=== PATIENT | male | born 1995 | race African-American/Black ===

== ENCOUNTER 2023-07-06 15:54 | Emergency (ER) | payer BC, MEDICAID ==
[~2023-07-06] VITALS: Ht 182.9 cm; Wt 117.4 kg
[2023-07-06 16:10] VITALS: BP 132/81; PULSE 113; RESP 15; O2SAT 94
[2023-07-06 16:50] LABS: Basophils # (auto) 0.1 10 ^3/uL (0-0.2); Basophils % (auto) 0.7 % (0.0-2.0); Eosinophils # (auto) 0 10 ^3/uL (0-0.8); Hematocrit 44.4 % (41.0-53.0); Hemoglobin 14.9 g/dL (13.5-17.5); Lymphocytes # (auto) 2.6 10 ^3/uL (0.4-5.4); Mean Corpuscular Hemoglobin 30.9 pg (28.0-32.0); Mean Corpuscular Hgb Conc. 33.5 g/dL (32.0-36.0); Mean Corpuscular Volume 92.2 fL (80.0-100.0); Monocytes # (auto) 0.6 10 ^3/uL (0-1.3); Monocytes % (auto) 5.3 % (0.0-12.0); Red Blood Cells 4.82 10^6/uL (4.5-5.90); Red Cell Distribution Width 12.5 % (11.8-14.3); White Blood Cell 11.3 10^3/uL (4.4-10.8)
[2023-07-06 17:07] LABS: Urine WBC None Seen /hpf (0 - 3)
[2023-07-06 17:08] LABS: Alanine Aminotransferase 27 U/L (7-40); Albumin 4.6 g/dL (3.2-4.8); Alkaline Phosphatase 74 U/L (46-116); Anion Gap 9 (5-15); Aspartate Aminotransferase 20 U/L (13-40); BUN/Creatinine Ratio 8.7 (10.0-20.0); Blood Urea Nitrogen 11 mg/dL (9-23); Calcium 9.2 mg/dL (8.7-10.4); Carbon Dioxide 25 mmol/L (20-30); Chloride 106 mmol/L (98-107); Glucose 113 mg/dL (74-106); Lipase 59 U/L (12-53); Sodium 140 mmol/L (136-145)
[2023-07-06 17:09] LABS: Bilirubin, Total 0.7 mg/dL (0.2-1.0); Total Protein 7.2 g/dL (5.7-8.2)
[2023-07-06 17:27] LABS: Urine Bacteria NONE SEEN /hpf (None Seen); Urine Blood 3+ /uL (Negative); Urine Budding Yeast FEW /hpf (None Seen); Urine Clarity CLOUDY (Clear); Urine Color Red (Yellow); Urine Protein, UAD 2+ (Negative); Urine Urobilinogen Normal (Negative); Urine WBC Clumps PRESENT /hpf (None Seen); Urine pH 5.5 (5.0-8.0)
[2023-07-06 17:28] LABS: Urine Specific Gravity 1.027 (1.001-1.035)
[2023-07-06] MEDS ORDERED: HYDROcodone-ACET 5/325MG TAB PO ONE (18:00)
[2023-07-06] MEDS ORDERED: cefTRIAXone 1GM/50ML D5W 50 ML IV ONE (18:00)
[2023-07-06] MEDS ORDERED: ONDANSETRON ODT 4 MG TAB PO ONE (18:00)
[2023-07-06] MEDS ORDERED: SODIUM CHLORIDE 0.9% 1,000 ML IV ONE (18:00)
[2023-07-06] MEDS ORDERED: CEPH500C PO (18:12)
[2023-07-06] MEDS ORDERED: PHEN-1045 PO (18:12)
[2023-07-06] MEDS ORDERED: HYDR-4902 PO (18:13)
[2023-07-06] MEDS ORDERED: ZOFR4T PO (18:13)
== END 2023-07-06 19:15 | disposition home or self-care (01) ==
LOC: ER 15:54
DX: N39.0 Urinary tract infection, site not specified (principal); R31.9 Hematuria, unspecified; Q63.9 Congenital malformation of kidney, unspecified
CPT/HCPCS: 36415; 74176; 80053; 81001; 83690; 85025